=== PATIENT | female | born 2000 | race Caucasian/White ===

== ENCOUNTER 2021-05-16 12:23 | Inpatient (IN) ==
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
[2021-05-16 13:46] LABS: Appearance Urine Clear (Clear); Bacteria Urine Automated Negative (Negative); Bilirubin Urine Negative (Negative); Blood Urine 3+ (Negative); Color Urine Dark Yellow; Epithelial Cell Urine Auto >30 /lpf (0-5); Glucose Urine UA Negative (Negative); Ketones Urine Negative (Negative); Leukocyte Esterase Urine 1+ (Negative); Nitrite Urine Negative (Negative); Pregnancy Test, Urine Negative (Negative); Protein Urine 1+ (Negative); Specific Gravity Urine 1.024 (1.000-1.030); Urobilinogen Urine Negative (Negative)
[2021-05-16 14:08] LABS: Amphetamines+Metham, Urine Neg (Neg); Barbiturates, Urine Neg (Neg); Benzodiazepine, Urine Neg (Neg); Cocaine, Urine Neg (Neg); MDMA (Ecstacy), Urine Neg (Neg); Methadone, Urine Neg (Neg); Opiate, Urine Neg (Neg); Phencyclidine, Urine Neg (Neg)
[2021-05-16 14:11] LABS: Basophils # (auto) 0.05 K/uL (0-0.2); Basophils % (auto) 0.5 %; Eosinophils # (auto) 0.13 K/uL (0-0.5); Eosinophils % (auto) 1.4 %; Hematocrit (blood only) 41.1 % (37-47); Hemoglobin 14.1 g/dL (12.0-16.0); Immature Granulocytes # (auto) 0.02 K/uL (0.00-0.02); Immature Granulocytes % (auto) 0.2 %; Lymphocytes # (auto) 3.18 K/uL (1.2-3.4); Lymphocytes % (auto) 33.6 %; Mean Corpuscular Hemoglobin 29.4 pg (25-34); Mean Corpuscular Hgb Conc 34.3 g/dL (32-36); Mean Corpuscular Volume 85.6 fL (80-100); Mean Platelet Volume 10.6 fL (7.4-10.4); Monocytes # (auto) 0.85 K/uL (0.11-0.59); Neutrophils # (auto) 5.24 K/uL (1.4-6.5); Neutrophils % (auto) 55.3 %; Platelet Count 267 K/uL (130-400); RDW Coefficient of Variation 12.6 % (11.5-14.5); RDW Standard Deviation 39.3 fL (36.4-46.3); White Blood Count 9.47 K/uL (4.8-10.8)
[2021-05-16 14:29] LABS: BUN Creatinine Ratio 12.8 (10-20); Calcium 9.1 mg/dl (8.5-10.1); Creatinine Clr Calc Pharmacy 91.4 ml/min; Est GFR (African American) 107.4 ml/min; Est GFR (Non-African American) 92.6 ml/min; Potassium 3.9 mmol/L (3.5-5.1)
[2021-05-16 14:40] LABS: Acetaminophen < 2 ug/ml (10-30); Albumin Globulin Ratio 1.1 (0.9-2); Bilirubin,Total 0.4 mg/dl (0.2-1); Globulin 3.6 gm/dl (2.5-4.0); Salicylate < 1.7 mg/dl (2.8-20); Thyroid Stimulating Hormone 0.606 uIu/ml (0.300-4.500); Total Protein 7.6 gm/dl (6.4-8.2)
[2021-05-16] MEDS ORDERED: BISMUTH SUBSALICYLATE LIQD 236 ML PO PRN (17:00)
[2021-05-16] MEDS ORDERED: SODIUM CHLORIDE 0.65% NA SOLN 45 ML (OCEAN) PRN (17:00)
[2021-05-16] MEDS ORDERED: ALUMINUM/MAGNESIUM SUSP 30 ML UDC PO PRN (17:00)
[2021-05-16] MEDS ORDERED: MAGNESIUM HYDROXIDE SUSP 30 ML UDC PO PRN (17:00)
[2021-05-16] MEDS ORDERED: hydrOXYzine HCl 25 MG TAB PO PRN (17:00)
[2021-05-16] MEDS ORDERED: ACETAMINOPHEN 325 MG TAB PO PRN (17:00)
[2021-05-16] MEDS: hydrOXYzine HCl 25 MG TAB PO PRN (22:05)
[2021-05-17] MEDS ORDERED: NICOTINE POLACRILEX 2 MG GUM MT PRN (14:48)
[2021-05-17] MEDS ORDERED: COUGH DROP (SUGAR FREE) LOZ 24 LOZ/1 BOX BUCCAL PRN (14:49)
[2021-05-17] MEDS: NICOTINE 14 MG/24 HR PATCH TD SCH (15:37)
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
[2021-05-17] MEDS: MIRTAZAPINE TAB 15 MG TAB PO SCH (22:13)
[2021-05-18] MEDS ORDERED: ALBUTEROL HFA 8 GM INHALER INH PRN (12:30)
[2021-05-18] MEDS: NICOTINE 14 MG/24 HR PATCH TD SCH (14:45)
[2021-05-18] MEDS: guaiFENesin/DEXTROM SYRUP 100MG/10MG 5ML UDC PO PRN ×2 (15:19→22:12)
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
[2021-05-18] MEDS: hydrOXYzine HCl 25 MG TAB PO PRN (22:11)
[2021-05-18] MEDS: MIRTAZAPINE TAB 15 MG TAB PO SCH (22:12)
[2021-05-19 06:56] LABS: Marijuana Quant, GCMS Urine 1521 ng/mL (<5)
--- NOTE | 2021-05-19 08:00 | Psychiatric Progress Note ---
Date of Service May 19, 2021 Impression / Recommendations Impression 21 yo female with complex PTSD history, atypical response to SSRIs with reports of non specific mood fluctuations (can't exclude bipolar), possible ADHD symptoms, remote work up for dyslexia, currently passive SI in the context of feelings of abandonment by [facility]. daily MJ use likely contributing to GI issues. 05/18/21: denies SI in structure of unit, ongoing overwhelm (1) Post traumatic stress disorder (PTSD): 05/18/21: rx cough, monitor for viral bronchitis, hx of asthma so trial of albuterol prn. Continue Remeron trial. Patient is noted to have black and white thinking, hx of dissociative like symptoms (could but substance induced) and strong reactions to rejection which likely represents borderline pathology but the this is best explored with ongoing outpatient treatment. 05/17/21: The patient was admitted to the [facility] ([facility] mental health unit) on q15 min checks (behavioral with suicide precautions) for safety. The patient will participate in group, recreational, and milieu therapies and will be offered additional individual and family sessions as clinically appropriate. D/C Prozac (hadn't started 40 mg yet and reports not taking for 2 days at 20 mg) in favor of a trial of Remeron. Risks/benefits/alternatives reviewed re: antidepressants for the treatment of depression and/or anxiety. Discussion included but was not limited to FDA warnings re: suicidality in adolescents and young adults. Inventory Assets Strengths: intelligent, verbal Needs: outpatient providers, formal withdrawal from . Risk Factors Assessment : Yes Do You Have Access To A Gun?: No Mental Health Diagnoses: Yes Previous Attempt: Yes Family History of Suicide: No Protective Factors Assessment Employed: No Supportive Family: Yes Interval History Identifying Information 21 yo female with dx of PTSD admit 05/16 on 201 commitment for SI. Chief Complaint "[]". Review of Systems Sleep Information Total Hours of Sleep: 6.5 Sleep Comments: pt on q-15 minute checks Meal Information Percent Meal Consumed - Breakfast: 25 Percent Meal Consumed - Lunch: 100 Percent Meal Consumed - Dinner: 100 Subjective Subjective Patient was seen & assessed and interval progress reviewed with [treatment team] [nursing and social work] Physical Exam Psychiatric Orientation: alert and oriented x 3 Apperance: appropriately dressed and appropriately groomed Eye Contact: good eye contact Motor Behavior: no abnormal motor movements Speech: normal rate/rhythm/volume of speech (but hyperverbal at times) Affect: euthymic affect Mood: + depressed mood Thought Process: goal directed thought process Thought Content: reality based without delusions Suicidal Thoughts: denies suicidal thoughts Homicidal Thoughts: denies homicidal thoughts Hallucinations: no auditory hallucinations and no visual hallucinations Cognition: attention grossly intact and language grossly intact Estimated Intelligence: consistent with education level Insight: + limited insight Judgement: + limited judgement Vital Signs (Past 24 Hours) Last Vital Signs Temp 36.5 C 05/19/21 06:31 Pulse 62 05/19/21 06:32 Resp 16 05/19/21 06:31 BP 110/75 05/19/21 06:32 Pulse Ox 98 05/18/21 15:35 Results & Data ([facility]) Laboratory Results Laboratory Results - last 24 hr 05/16/21 13:06 U Marijuana THC Carboxy 1521 H Drug Screen Comment SEE NOTE Current Inpatient Medications Current Inpatient Medications: Current Inpatient Medications Acetaminophen (Acetaminophen 325 Mg Tab) 650 mg PO Q4H PRN PRN Reason: Headache or Minor Fever Stop: 06/15/21 16:59 Al Hydrox/Mg Hydrox/Simethicone (Aluminum/Magnesium Susp 30 Ml Udc) 30 ml PO Q4H PRN PRN Reason: GI Upset Stop: 06/15/21 16:59 Albuterol (Albuterol Hfa 8 Gm Inhaler) 2 puffs INH Q4 PRN PRN Reason: cough Stop: 06/17/21 12:29 Last Admin: 05/18/21 15:34 Dose: 2 puffs Documented by: Bismuth Subsalicylate (Bismuth Subsalicylate Liqd 236 Ml) 15 ml PO PRN PRN PRN Reason: Loose Stool Stop: 06/15/21 16:59 Guaifenesin/Dextromethorphan (Guaifenesin/Dextrom Syrup 100mg/10mg 5ml Udc) 5 ml PO Q6H PRN PRN Reason: Cough Stop: 06/17/21 12:28 Last Admin: 05/18/21 22:12 Dose: 5 ml Documented by: Hydroxyzine HCl (Hydroxyzine Hcl 25 Mg Tab) 50 mg PO HSZ PRN PRN Reason: Insomnia Stop: 06/15/21 16:59 Last Admin: 05/18/21 22:11 Dose: 50 mg Documented by: Hydroxyzine HCl (Hydroxyzine Hcl 25 Mg Tab) 25 mg PO Q4H PRN PRN Reason: Anxiety Stop: 06/15/21 16:59 Magnesium Hydroxide (Magnesium Hydroxide Susp 30 Ml Udc) 30 ml PO DAILY PRN PRN Reason: Constipation Stop: 06/15/21 16:59 Menthol (Cough Drop (Sugar Free) Bernadette 24 Bernadette/1 Box) 1 bernadette BUCCAL Q2HWA PRN PRN Reason: Sore Throat Stop: 06/16/21 14:48 Mirtazapine (Mirtazapine Tab 15 Mg Tab) 15 mg PO HS BRAN Stop: 06/16/21 21:59 Last Admin: 05/18/21 22:12 Dose: 15 mg Documented by: Miscellaneous (Remove Nicoderm Patch) 1 ea N/A DAILY@0859 [facility] Stop: 06/17/21 08:58 Last Admin: 05/18/21 14:45 Dose: Not Given Documented by: Nicotine (Nicotine 14 Mg/24 Hr Patch) 14 mg TD QAM [facility] Stop: 06/16/21 14:59 Last Admin: 05/18/21 14:45 Dose: 14 mg Documented by: Nicotine Polacrilex (Nicotine Polacrilex 2 Mg Gum) 1 piece MT Q1H PRN PRN Reason: nicotine withdrawal Stop: 06/16/21 14:47 Sodium Chloride (Sodium Chloride 0.65% Na Soln 45 Ml ([place])) 1 - 2 sprays NA PRN PRN PRN Reason: Nasal Dryness/Congestion Stop: 06/15/21 16:59 Mental Health & Subst Abuse Tx Psychiatrist Name of Psychiatrist: . Psychiatrist's Phone Number: . Date of Appointment with Psychiatrist: 05/23/21 Time of Appointment with Psychiatrist: . Psychiatric Appointment Comment: . Club Former Name of Club Former: [facility] Phone Number for Club Former: [phone] Post Discharge Appointments Primary Care Physician Name Of Family Doctor: [facility] Contact Information Discharge Discharge Address: [address] [place] [address]
[2021-05-19] MEDS: guaiFENesin/DEXTROM SYRUP 100MG/10MG 5ML UDC PO PRN (08:23)
[2021-05-19] MEDS ORDERED: NICOTINE 14 MG/24 HR PATCH TD SCH (09:00)
[2021-05-19] MEDS ORDERED: NICOTINE 7 MG/24 HR TDSY TD SCH (09:15)
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
== END 2021-05-19 18:37 | disposition home or self-care (01) | DRG 882 ==
LOC: ED 12:23 → 3S 17:00